=== PATIENT | female | born 2005 | race Two or more races ===

== ENCOUNTER 2024-01-30 09:58 | Inpatient (IN) ==
--- NOTE | 2024-01-30 10:24 | Labor Progress Brief Note ---
Date of Service January 30, 2024 Subjective Patient c/o ctx since this morning, originally Q15m but got much closer together, states q1m. No LOF, scant mucus/blood in discharge, good FM. Presented to L&D directly. Care team today includes resident Dr. Tex Grullon who is a cabazon Taiwanese speaker and able to assist in care, but manager [employer] iPad also utilized for history taking. Assessment & Plan (1) Uterine contractions: Plan: Currently cervix is unchanged from prior exam in office, ctx palp mild per RN, unclear if in labor. Will assess over 2 hours for any change. Pt has IOL on Saturday if not laboring. Physical Exam Genitourinary: /hi/firm/post FHT Cat 1 Bantam Q 4 min Results & Data Vital Signs (Past 12 Hours) Vital Signs Pulse BP 01/30/24 10:09 100 H 111/65 Coding Level of Care Code None Diagnoses Uterine contractions O47.9
[2024-01-30] MEDS ORDERED: OXYTOCIN 30 UNITS/NSS 30 UNITS/500 ML BAG IV PRN (12:25)
[2024-01-30] MEDS ORDERED: LIDOCAINE 1% LOCAL 20 ML VIAL INFIL PRN (12:25)
[2024-01-30] MEDS: LACTATED RINGER'S 1,000 ML IV PRN (12:30)
--- NOTE | 2024-01-30 12:33 | History & Physical Report ---
"Date of Service January 30, 2024 Assessment & Plan (1) Uterine contractions: Plan 18 y/o at 40 weeks of gestational age here for labor Oxytocin if need, as protocol AROM when indicated Epidural requested GBS negative tracing Category 1 History of Present Illness Primary Care Provider: NO PCP 18 y/o with 40 weeks and 2 days of gestation. Here for labor. Complications with this include teen and recurrente coli UTI. Currently taking no medications. GBS negative, Rubella immune, BTG: O positive Contractions: Moderate every 1 minutes Fluid or Blood loss: none Movement: active FHR baseline 145, moderate variability, accelerations present, decelerations absent OB Labs: Blood Type O Positive 08/14/23 Antibody Screen NEGATIVE 08/14/23 Hemoglobin 10.2 g/dl (12.0-16.0) L 11/06/23 Hematocrit 31.9 % (37.0-47.0) L 11/06/23 Mean Corpuscular Volume 84.3 fL (80.0-100.0) 08/14/23 Platelet Count 321 K/uL (130-400) 08/14/23 Rubella IgG Antibody Immune (Immune) 08/14/23 Rapid Plasma Reagin Nonreactive (Nonreactive) 08/14/23 Hepatitis B Surface Antigen. NON-REACTIVE (NON-REACTIVE) 08/14/23 Hepatitis C Antibody (EIA) NON-REACTIVE (NON-REACTIVE) 08/14/23 HIV (1&2) Ag and Ab Confirmation NON-REACTIVE (NON-REACTIVE) 08/14/23 Glucose 1 Hour 50 gm Load 97 mg/dl (70-130) 11/06/23 OB Optional Labs: Chlamydia trachomatis RNA Not Detected (NotDetected) 06/19/23 Neisseria gonorrhoeae RNA Not Detected (NotDetected) 06/19/23 Labs Reviewed: Declines genetics--mln gbs neg--akh Allergies Allergy/AdvReac Type Severity Reaction Status Date / Time No Known Allergies Allergy Verified 01/30/24 11:10 Patient History Medical History Urinary tract infection during Family History Mother Diabetes Social History Smoking Status: Never smoker Do You Dip or Chew Tobacco: No; Hx Alcohol Use: No Hx Substance Use: No Preferred Language: Ecuadorean Communication Tools: IPad Clinical Education Manager Required: Yes Beliefs That Will Affect Care: None marital status: Single marital status details: Jarrett priest (20) [phone] Current Living Situation: Significant Other Current Living Situation Comment: lives with fob and his father current occupational status: unemployed Other Information That Helps Us Care for You: No Feels Safe at Home: Yes Safety Concerns: Feels Safe At This Time Assistive Devices: None Review of Systems as per HPI Physical Exam Physical Exam: General: patient resting comfortably, NAD, non-toxic in appearance, AA&O x 4, answers questions appropriately. Skin: warm, dry, intact HEENT: NC/AT, anicteric sclera, conjunctiva without injection, moist mucus membranes Heart: +S1/S2, regular, no m/r/g Lungs: equal air entry bilaterally, no rales/rhonchi/wheezes Abd: +BS, soft, NT/ND, gravid uterus Cervical: 3|60|-2|, uterus mod. anterior Ext: warm, no clubbing/cyanosis or edema Neuro: nonfocal, patient AA&O x 4, speech intact, no facial droop, moving all extremities on command. Results & Data Vital Signs (Past 12 Hours) Vital Signs Temp Pulse Resp BP 01/30/24 12:21 89 127/74 01/30/24 10:11 36.6 C 18 01/30/24 10:09 36.6 C 100 H 111/65 Resident Activity Tracking Resident Involvement: Resident Care Provided Care Provided: OB Delivery"
[2024-01-30 13:08] LABS: Hematocrit (blood only) 32.8 % (37.0-47.0); Hemoglobin 10.4 g/dl (12.0-16.0); Mean Corpuscular Hemoglobin 23.2 pg (25.0-34.0); Mean Corpuscular Hgb Conc 31.7 g/dL (32.0-36.0); Mean Corpuscular Volume 73.2 fL (80.0-100.0); Mean Platelet Volume 9.5 fL (9.4-12.4); Platelet Count 292 K/uL (130-400); RDW Coefficient of Variation 16.4 % (11.5-14.5); RDW Standard Deviation 42.6 fL (36.4-46.3); Red Blood Count 4.48 M/uL (4.20-5.40); White Blood Count 8.29 K/ul (4.8-10.8)
[2024-01-30] MEDS ORDERED: diphenhydrAMINE 50 MG/ML VIAL IV PRN ×2 (13:52→14:22)
[2024-01-30] MEDS ORDERED: SODIUM CHLORIDE 0.9% PF INJ 10 ML VIAL EPI PRN ×2 (13:52→14:22)
[2024-01-30] MEDS ORDERED: BUPIVACAINE 0.25% PF 30 ML VIAL EPI PRN ×2 (13:52→14:22)
[2024-01-30] MEDS ORDERED: LIDOCAINE 2% MPF LOCAL 5 ML VIAL EPI PRN ×2 (13:52→14:22)
[2024-01-30] MEDS ORDERED: fentaNYL citrate PF 100 MCG/2 ML VIAL EPI PRN ×2 (13:52→14:22)
[2024-01-30] MEDS ORDERED: ePHEDrine sulfate 50 MG/ML AMP IV PRN ×2 (13:52→14:22)
[2024-01-30] MEDS ORDERED: ROPIVACAINE 0.5% PF 5 MG/ML 20 ML VIAL EPI PRN ×2 (13:52→14:22)
[2024-01-30] MEDS ORDERED: NALOXONE HCL 0.4 MG/1 ML VIAL/CARP IV PRN ×2 (13:52→14:22)
[2024-01-30] MEDS ORDERED: NALOXONE HCL 1 MG in SODIUM CHLORIDE 0.9% 1,000 ML IV PRN ×2 (13:52→14:22)
[2024-01-30] MEDS ORDERED: NALBUPHINE HCL 5 MG in SYRINGE 0 ML IV PRN ×2 (13:52→14:22)
--- NOTE | 2024-01-30 13:56 | Anesthesiology Consultation ---
Date of Service January 30, 2024 Assessment & Plan Chart Review Chart Review: Patient NOT seen in Pre Admission Testing and Acceptable Risk for Labor Epidural Consults Requested none ASA ASA2 Proposed Anesthesia Anesthesia Type: Labor Epidural Risk / Benefits Reviewed With: PT / POA / Parent / Guardian, Accepts Plan and Informed Consent Obtained History Height/Weight Height: 5 ft 2 in Weight: 83.007 kg Allergies Allergy/AdvReac Type Severity Reaction Status Date / Time No Known Allergies Allergy Verified 01/30/24 11:10 Medications Active Medications Generic Name Dose Route Start Last Admin Trade Name Freq PRN Reason Stop Dose Admin Lactated Ringer's 1,000 mls @ 125 mls/hr 01/30/24 12:25 01/30/24 13:38 Lr IV 02/01/24 12:24 125 mls/hr .Q8H PRN Administration L&D Protocol Protocol NPO Date Last Intake of Fluids: 01/30/24 Time Last Intake of Fluids: 13:30 Date Last Intake of Solids: 01/30/24 Time Last Intake of Solids: 08:30 Past Medical History Medical History Urinary tract infection during Exercise / Class Metabolic Activity 1 > 8 Run/Swim/Ski/Tennis Past Family History Family History Mother Diabetes Past Anesthesia History No Hx of Anesthesia Complications and No Family Hx of Anesthesia Complications History of PONV No Hx of PONV and No Hx of Motion Sickness Social History Smoking Status: Never smoker Do You Dip or Chew Tobacco: No Hx Alcohol Use: No Hx Substance Use: No substance use type: does not use Review of Systems ROS Unobtainable: All systems reviewed & are unremarkable except as noted in HPI & below Physical Exam Vital Signs Last Vital Signs Temp 36.6 C 01/30/24 10:11 Pulse 85 01/30/24 13:50 Resp 18 01/30/24 10:11 BP 127/74 01/30/24 12:21 Pulse Ox 96 01/30/24 13:50 ENMT Mouth: no TMJ abnormality Thyromental Distance: > or= 3.5 Finger Breadths Mallampati Class: II Neck normal visual inspection and trachea midline; neck extension not limited Respiratory normal respiratory effort Auscultation: lungs clear to auscultation bilaterally Cardiovascular Rate/Rhythm: regular rate and regular rhythm Heart Sounds: no murmur Musculoskeletal Spine: normal cervical ROM Extremities: full ROM of extremities Neurologic moves all extremities Psychiatric Orientation: alert and oriented x 3 Testing Laboratory Results 01/30/24 12:34
[2024-01-30] MEDS: fentANYL 2 MCG/ML BUPIVacaine 0.125%-NSS 100ML BAG ONE (14:17)
[2024-01-30] MEDS ORDERED: fentANYL 2 MCG/ML BUPIVacaine 0.125%-NSS 100ML BAG EPI PRN (14:22)
[2024-01-30] MEDS ORDERED: BUPIVACAINE 0.25% PF 30 ML VIAL EPI STA (14:22)
[2024-01-30] MEDS ORDERED: SODIUM CHLORIDE 0.9% PF INJ 10 ML VIAL EPI STA (14:22)
[2024-01-30] MEDS ORDERED: fentaNYL citrate PF 100 MCG/2 ML VIAL EPI STA (14:22)
[2024-01-30] MEDS ORDERED: LIDOCAINE 2%/EPINEPHRINE 1:200,000 20 ML PF EPI STA (14:22)
[2024-01-30] MEDS: fentaNYL citrate PF 100 MCG/2 ML VIAL ONE (14:35)
[2024-01-30] MEDS: BUPIVACAINE 0.25% PF 30 ML VIAL ONE (14:36)
[2024-01-30] MEDS: SODIUM CHLORIDE 0.9% PF INJ 10 ML VIAL ONE (14:36)
--- NOTE | 2024-01-30 14:54 | Labor Progress Brief Note ---
Date of Service January 30, 2024 Subjective Patient comfortable with epidural. Assessment & Plan (1) Normal labor: Plan Will start Pitocin Arom if needed Admission and Anticipated Discharge Date Admission Date: January 30, 2024 Physical Exam Genitourinary: Manual OB Exam: + cervical dilation 3 cm, + cervical effacement 80%, + station -2 and + amniotic fluid (No evidence of lacking) tracing reassuring category 1 , contraction every 3 minutes Results & Data Vital Signs (Past 12 Hours) Vital Signs Temp Pulse Resp BP Pulse Ox 01/30/24 14:45 74 96 01/30/24 14:40 69 97 01/30/24 14:38 75 100/60 01/30/24 14:35 82 98 01/30/24 14:31 67 100/55 L 01/30/24 14:30 71 96 01/30/24 14:27 70 107/62 01/30/24 14:25 85 97 01/30/24 14:22 106 H 89 L 01/30/24 14:20 85 108/55 L 96 01/30/24 14:18 77 116/59 L 01/30/24 14:16 80 113/56 L 01/30/24 14:15 82 117/58 L 95 01/30/24 14:11 100 H 88 L 01/30/24 14:10 94 H 94 01/30/24 14:05 84 95 01/30/24 14:00 88 97 01/30/24 13:55 75 97 01/30/24 13:50 85 96 01/30/24 13:45 81 95 01/30/24 13:40 71 94 01/30/24 13:39 88 94 01/30/24 13:35 77 94 01/30/24 13:31 76 94 01/30/24 13:30 77 95 01/30/24 13:25 94 01/30/24 13:25 82 01/30/24 13:25 80 94 01/30/24 13:20 87 95 01/30/24 13:19 86 94 01/30/24 13:15 83 93 01/30/24 13:13 75 94 01/30/24 13:10 89 94 01/30/24 13:05 95 01/30/24 13:05 86 01/30/24 13:05 82 94 01/30/24 13:00 96 01/30/24 13:00 76 01/30/24 13:00 76 94 01/30/24 12:55 72 95 01/30/24 12:21 89 127/74 01/30/24 10:11 36.6 C 18 01/30/24 10:09 36.6 C 100 H 111/65
[2024-01-30] MEDS: OXYTOCIN 30 UNITS/NSS 30 UNITS/500 ML BAG IV PRN (15:06)
[2024-01-30] MEDS: ePHEDrine sulfate 50 MG/ML AMP ONE (18:22)
[2024-01-30] MEDS: fentaNYL citrate PF 100 MCG/2 ML VIAL EPI STA (18:22)
[2024-01-30] MEDS: SODIUM CHLORIDE 0.9% PF INJ 10 ML VIAL EPI STA (18:22)
[2024-01-30] MEDS: BUPIVACAINE 0.25% PF 30 ML VIAL EPI STA (18:22)
[2024-01-30] MEDS: LIDOCAINE 2%/EPINEPHRINE 1:200,000 20 ML PF EPI STA (18:22)
[2024-01-30] MEDS: fentANYL 2 MCG/ML BUPIVacaine 0.125%-NSS 100ML BAG EPI PRN (22:10)
[2024-01-30] MEDS: ACETAMINOPHEN 325 MG TAB PO ONE (22:24)
--- NOTE | 2024-01-30 22:54 | Delivery Summary ---
Vaginal Delivery Summary Date of Service January 30, 2024 Vaginal Delivery Summary DIAGNOSES: 1. Contreras intrauterine at 40w2d gestation. 2. Spontaneous onset of labor. 3. Group B Streptococcus Neg. PROCEDURE: Spontaneous vaginal delivery without laceration. SURGEON: Eloisa Carson MD. SURVEILLANCE TECHNICIAN: None. QUANTITATIVE BLOOD LOSS: 50 mL. COMPLICATIONS: None. PLACENTA: Spontaneous and intact with a 3-vessel cord. DISPOSITION: Stable to labor and delivery. DESCRIPTION: The patient pushed well and brought the head to in OA position. The infant's head was allowed to deliver with contraction force and no further active pushing, with the perineum protected during this time. There was no nuchal cord. The right shoulder was anterior. The shoulders and body delivered without any difficulty, and the infant was placed on the maternal abdomen. It was vigorous and moving all extremities, and making respiratory efforts. The cord was doubly clamped by the MD and then cut by the FOB. The placenta delivered spontaneously and was noted to be intact and with a 3VC. The cervix, vagina and perineum were examined and were found to be without defect requiring repair. The fundus was firm and lochia minimal immediately after delivery. [facility] [place] Vaginal Delivery Charge Vaginal Delivery Codes: 24859 global code for the antepartum, delivery, and post-
[2024-01-31] MEDS ORDERED: HYDROCORTISONE ACETATE 25 MG SUPP PR PRN (02:20)
[2024-01-31] MEDS ORDERED: OXYTOCIN 30 UNITS/NSS 30 UNITS/500 ML BAG IV PRN (02:20)
[2024-01-31] MEDS ORDERED: BENZOCAINE 20% SPRY 85 APPLN/85 GM CAN EXT PRN (02:20)
[2024-01-31] MEDS ORDERED: ACETAMINOPHEN 325 MG TAB PO PRN (02:20)
[2024-01-31] MEDS ORDERED: DIPHTHER/TETAN/PERTUS Vaccine (Tdap, Adol/Adult) 0.5mL IM ONE (02:20)
[2024-01-31] MEDS ORDERED: bisacodyL 10 MG SUPP PR PRN (02:20)
[2024-01-31] MEDS: ACETAMINOPHEN 325 MG TAB PO STA (03:57)
--- NOTE | 2024-01-31 05:44 | Obstetrical Progress Note ---
Date of Service January 31, 2024 Assessment & Plan (1) Encounter for care and examination after delivery: Plan 15 y/o PPD#1 s/p Doing well Rubella Immune. BTG: O+ Vital signs reviewed Encourage breast feeding Continue post care Admission and Anticipated Discharge Date Admission Date: January 30, 2024 Subjective 18 yo post- day 1 s/p Ambulation: ambulating normally Voiding: no voiding problems Passing Gas: Yes Diet Tolerance: regular diet Lochia:: Small Feeding Type: breast feeding Current Pain Level: Mild Resting comfortably this AM in NAD. Denies FONTANEZ, CP, SOB, N/V/D, LE pain/swelling. Review of Systems 2 Review of Systems: as per HPI Physical Exam Physical Exam: General: patient resting comfortably, NAD, non-toxic in appearance, AA&O x 4, answers questions appropriately. Skin: warm, dry, intact Heart: +S1/S2, regular, no m/r/g Lungs: equal air entry bilaterally, no rales/rhonchi/wheezes Abd: +BS, soft, NT/ND, uterine fundus firm at umbilicus Ext: warm, no clubbing/cyanosis or edema, Maryse's neg. Neuro: nonfocal, patient AA&O x 4, moving all extremities on command. Results & Data Vital Signs (Past 12 Hours) Vital Signs Temp Pulse Resp BP Pulse Ox 01/31/24 00:49 66 106/67 01/31/24 00:45 16 01/31/24 00:39 71 110/58 L 01/31/24 00:24 64 116/67 01/31/24 00:15 18 01/31/24 00:09 71 112/63 01/30/24 23:54 66 114/61 01/30/24 23:45 18 01/30/24 23:39 77 120/65 01/30/24 23:30 18 01/30/24 23:24 72 119/66 01/30/24 23:15 16 01/30/24 23:09 76 118/70 01/30/24 23:00 18 01/30/24 22:55 85 117/60 01/30/24 22:48 86 101/74 01/30/24 22:45 36.6 C 18 01/30/24 22:40 77 97 01/30/24 22:39 74 117/60 01/30/24 22:35 91 H 95 01/30/24 22:30 93 H 98 01/30/24 22:25 98 H 98 01/30/24 22:20 82 98 01/30/24 22:15 103 H 97 01/30/24 22:10 76 112/61 98 01/30/24 22:05 83 97 01/30/24 22:00 83 96 01/30/24 21:55 79 98 01/30/24 21:54 103/66 01/30/24 21:50 83 96 01/30/24 21:45 76 97 01/30/24 21:40 79 97 01/30/24 21:39 81 115/61 01/30/24 21:35 82 96 01/30/24 21:30 79 18 97 01/30/24 21:26 73 112/55 L 01/30/24 21:25 81 97 01/30/24 21:20 74 95 01/30/24 21:15 70 96 01/30/24 21:10 96 01/30/24 21:10 72 01/30/24 21:10 73 115/64 01/30/24 21:05 73 96 01/30/24 21:00 36.7 C 76 18 97 01/30/24 20:55 70 96 01/30/24 20:54 79 111/68 01/30/24 20:50 79 97 01/30/24 20:45 84 97 01/30/24 20:40 76 112/69 96 01/30/24 20:35 80 97 01/30/24 20:30 81 97 01/30/24 20:25 80 97 01/30/24 20:24 83 111/67 01/30/24 20:20 71 96 01/30/24 20:15 79 96 01/30/24 20:10 85 96 01/30/24 20:09 75 113/68 01/30/24 20:05 79 97 01/30/24 20:00 92 H 95 01/30/24 19:55 90 112/64 94 01/30/24 19:50 81 94 01/30/24 19:45 79 96 01/30/24 19:40 75 96 01/30/24 19:39 73 112/60 01/30/24 19:35 74 95 01/30/24 19:30 86 95 01/30/24 19:25 70 96 01/30/24 19:24 75 107/53 L 01/30/24 19:20 87 96 01/30/24 19:15 101 H 96 01/30/24 19:10 80 96 01/30/24 19:09 67 104/64 01/30/24 19:05 68 96 01/30/24 19:00 36.4 C L 75 96 01/30/24 18:55 79 96 01/30/24 18:54 68 98/55 L 01/30/24 18:50 70 95 01/30/24 18:45 77 96 01/30/24 18:41 69 106/58 L 01/30/24 18:40 68 96 01/30/24 18:35 71 97 01/30/24 18:30 85 20 96 01/30/24 18:25 73 96 01/30/24 18:24 65 106/57 L 01/30/24 18:20 69 96 01/30/24 18:15 71 96 01/30/24 18:11 73 103/55 L 01/30/24 18:10 75 95 01/30/24 18:05 75 95 01/30/24 18:00 70 20 95 01/30/24 17:56 65 106/58 L 01/30/24 17:55 66 95 01/30/24 17:50 81 96 01/30/24 17:45 79 95 Resident Activity Tracking Resident Involvement: Resident Care Provided Care Provided: OB Delivery
[2024-01-31] MEDS: IBUPROFEN 600 MG TAB PO PRN (06:09)
[2024-01-31 06:31] LABS: Hematocrit (blood only) 32.1 % (37.0-47.0); Hemoglobin 10.4 g/dl (12.0-16.0)
--- NOTE | 2024-01-31 09:26 | Anesthesia Procedure Note ---
Date of Service January 31, 2024 Anesthesia Post Epidural Note Vital Signs Vital Signs: Temp Pulse Resp BP Pulse Ox O2 Del Method 36.4 C L 87 15 105/69 96 Room Air 01/31/24 07:50 01/31/24 07:50 01/31/24 07:50 01/31/24 07:50 01/31/24 07:50 01/31/24 07:50 Pain Intensity Abdomen: Pain Intensity: 7 Notes Mental Status: alert / awake / arousable Nausea / Vomiting: adequately controlled Pain: adequately controlled Airway Patency, RR, SpO2: stable & adequate BP & HR: stable & adequate Hydration State: stable & adequate Neuraxial Anesthesia: was administered and sensory block is resolving Anesthetic Complications: no major complications apparent and Pt Satisfied with anesthetic care Epidural: Removed without complications and With tip intact
[2024-01-31] MEDS: DOCUSATE SODIUM 100 MG CAP PO SCH (10:08)
[2024-01-31] MEDS: PRENATAL VITAMIN 1 TAB PO SCH (10:08)
[2024-01-31 18:56] VITALS: RESP 18
[2024-01-31] MEDS: NITROFURANTOIN MONOHYDRATE 100 MG CAP PO SCH (21:01)
[2024-01-31] MEDS: bisacodyL 5 MG TABEC PO SCH (21:02)
--- NOTE | 2024-02-01 05:56 | Obstetrical Progress Note ---
Date of Service February 01, 2024 Assessment & Plan (1) Encounter for care and examination after delivery: Plan 15 y/o PPD#2 s/p Doing well Rubella Immune. BTG: O+ Vital signs reviewed Encourage breast feeding Continue post care Recurrent UTI, Blood culture growing E,coli. Patient with mild discomfort while voiding. Will treat with abx Discharge home today, instructions reviewed Follow up in 6 weeks in office Admission and Anticipated Discharge Date Admission Date: January 30, 2024 Supervising Physician Co-Signing Physician Notes Resident Physician Supervision Note: I was present with Dr. Yousif during the history and exam. I discussed the case with the resident and agree with the findings and plan as documented in the note. Any exceptions or clarifications are listed here: pt doing well, eating, voiding, , walking, wants to go home, aware given mild uti sx now and when urine was tested before delivery, will have her complete course of amoxicillin. F/u 6 wks pp check. instructions reviewed. Slovenian interpretation done by resident physician. Abd soft ff 2 down nt, ext nt calves. Documented By: Xuan Villanueva MD, FACOG Subjective 18 yo post- day 2 s/p Ambulation: ambulating normally Voiding: no voiding problems Passing Gas: Yes Diet Tolerance: regular diet Lochia:: Small Feeding Type: breast feeding Current Pain Level: Mild Resting comfortably this AM in NAD. Denies FONTANEZ, CP, SOB, N/V/D, LE pain/swelling. Review of Systems Review of Systems: as per HPI Physical Exam Physical Exam: General: patient resting comfortably, NAD, non-toxic in appearance, AA&O x 4, answers questions appropriately. Skin: warm, dry, intact Heart: +S1/S2, regular, no m/r/g Lungs: equal air entry bilaterally, no rales/rhonchi/wheezes Abd: +BS, soft, NT/ND, uterine fundus firm at umbilicus Ext: warm, no clubbing/cyanosis or edema, Maryse's neg. Neuro: nonfocal, patient AA&O x 4, moving all extremities on command. Results & Data Vital Signs (Past 12 Hours) Vital Signs Temp Pulse Resp BP Pulse Ox O2 Del Method 01/31/24 22:46 36.8 C 79 18 115/65 97 Room Air 01/31/24 18:56 36.8 C 84 18 102/66 96 Room Air Resident Activity Tracking Resident Involvement: Resident Care Provided Care Provided: OB Delivery
[2024-02-01] MEDS: AMOXICILLIN 500 MG CAP PO SCH (09:51)
[2024-02-01 11:52] VITALS: BP 111/66; TEMP 98.1; O2SAT 96
[2024-02-01 11:57] VITALS: PULSE 64
== END 2024-02-01 10:45 | disposition home or self-care (01) | DRG 806 ==
LOC: OPB 09:58 → 4S1 10:02 → 4E2 01-31 02:40